=== PATIENT | female | born 1950 | race Caucasian/White ===

== ENCOUNTER → 2017-07-13 | Outpatient (CLI) | payer MEDICARE, OTHER ==
[~2017-07-13] MED LIST: ACET-1966 PO; ACYC-50 PO; ALLERGY INJECTIONS SC; BUDE8.43; BUPR-147 PO; FLUO40CA76 PO; HCTZ25 PO; HYDR12.558 PO; LEVO50TA86 PO; LOR5/325 PO; METH5TAB85 PO; OLM20 PO; OLME5TAB8 PO; ONDA4TAB PO; PER PO; PRO25 PO; PROM25S PR; VITA1TAB7 PO; [UNRECOGNIZED DRUG - CODE] PO; [UNRECOGNIZED DRUG - OTHER] PO; [UNRECOGNIZED DRUG - OTHER] PO
--- NOTE | 2017-07-13 10:50 | RADIOLOGY IMAGING REPORT ---
FACILITY: [facility] PATIENT NAME: Shelley Trivedi : 1950 MR: [id number] V: [id number] EXAM DATE: ORDERING PHYSICIAN: SERA ISSA TECHNOLOGIST: Location: [facility] [place] Patient: Shelley Trivedi : 1950 Visit/Account:[id number] Date of Sevice: 07/13/2017 BRAIN W/O CONTRAST Comparisons: None. Additional pertinent history: Memory difficulties TECHNIQUE: Multiplanar, multisequence brain MRI was performed without gadolinium contrast. FINDINGS: Sagittal midline structures and craniocervical junction: Negative. Midline shift: None. Ventricles: Negative. Brain parenchyma: Diffusion weighted imaging: Negative. Gradient sequence: Negative. T2 weighted FLAIR images: Few scattered foci of abnormal increased T2 signal within the periventric ular and subcortical white matter, nonspecific but likely representing small vessel ischemic change o n a chronic basis. Extra-axial spaces: Negative. Dural venous sinuses and major arterial flow voids: Negative. Mastoid air cells and paranasal sinuses: Negative. Surrounding soft tissues and orbits: Negative. Impression: 1. Mild age-related changes as described above. 2. No evidence of acute intracranial pathology. Report Dictated By: Rafael Walker MD at 07/13/2017 10:41 AM Report E-Signed By: Rafael Walker MD at 07/13/2017 10:44 AM WSN:[id number]
== END ==
LOC: MRI 00:58
PROVIDERS: ATTEND Nurse Practitioner Family
DX: R41.3 Other amnesia (principal)
CPT/HCPCS: 70551

== ENCOUNTER → 2018-08-28 | Outpatient (CLI) | payer MEDICARE, OTHER ==
--- NOTE | 2018-08-29 08:21 | RADIOLOGY IMAGING REPORT ---
FACILITY: [facility] [place] PATIENT NAME: SANDRO POWERS : [id number] MR: [id number] V: [id number] EXAM DATE: ORDERING PHYSICIAN: SERA ISSA TECHNOLOGIST: Jaylyn Osorio PROCEDURE:BILATERAL DIGITAL SCREENING MAMMOGRAM WITH CAD ASSISTED INTERPRETATION & 3D TOMOSYNTHESIS COMPARISON:Prior mammograms 04/11/17, 10/07/15, 06/25/13, 12/29/11. INDICATIONS:screening FINDINGS: The breasts are almost entirely fatty. The parenchymal pattern has remained stable allowing for difference in mammographic technique. Benign appearing lymph nodes in the upper outer quadrant of the Right breast have remained stable. DIAGNOSTIC CATEGORY 2--BENIGN FINDING. RECOMMENDATIONS: ROUTINE MAMMOGRAM AND CLINICAL EVALUATION. IMPRESSION: BIRADS 2: Benign finding. No significant abnormality is seen. Dictated by: Ariela Vazquez M.D. on 08/28/2018 at 17:07 Transcribed by: PJ on 08/29/2018 at 8:12 Approved by: Ariela Vazquez M.D. on 08/29/2018 at 8:20 [facility]
== END ==
LOC: MAMO 08-04 02:42
PROVIDERS: ATTEND Nurse Practitioner Family
DX: Z12.31 Encounter for screening mammogram for malignant neoplasm of breast (principal)
CPT/HCPCS: 77063; 77067